=== PATIENT | female | born 1945 | race Caucasian/White ===

== ENCOUNTER 2023-05-19 17:03 | Emergency (ER) | payer OTHER, SELFPAY ==
[2023-05-19 17:21] VITALS: BP 168/64
--- NOTE | 2023-05-19 20:39 | ED.GENMED ---
History of Present Illness
<EL Henley - Last Filed: 05/19/23 23:52>
General
Chief Complaint: Extremity Pain (non-traumatic)
Source: patient
Exam Limitations: none
Time Seen by Provider: 05/19/23 20:12
Nursing documentation reviewed up to this point in time: agreed with
Travel History
Have you had any contact with someone who has COVID-19?: No
Do you have any symptoms of coronavirus? Fever > 100 degrees, chills, cough, shortness of breath, sore throat, loss of taste or smell, muscle aches, or headache?: No
History of Present Illness
History of Present Illness:
Patient is a 77-year-old female who had left hip replacement February 2023. Patient reports she was fine until this morning when she noticed discomfort with walking. She complains of fullness and notices a little swelling around the incisional
site to the left hip. She does feel that it is warmer. She denies any injury or trauma. She denies any fever or chills.
She has a follow-up appointment with DR Lim tomorrow.
Review of Systems
<EL Henley - Last Filed: 05/19/23 23:52>
Review of Systems
Allergies reviewed?: Yes
All Other Systems: ROS reviewed and negative except as documented in HPI and ROS
Constitutional: Reports no symptoms; Denies fever, fatigue or chills
Musculoskeletal: Reports other (left hip pain )
Skin: Reports no symptoms
Psychiatric: Reports no symptoms
Phy Exam
<EL Henley - Last Filed: 05/19/23 23:52>
General Physical Exam
General Presentation: no apparent distress
General age: appears stated age
General Skin: warm and dry
General Habitus: normal
General Mental: alert
General Hydration: appears well hydrated
Neurological Exam
Neurological Exam: alert and oriented x3
Musculoskeletal Exam
Musculoskeletal Exam: other (pt with + swelling mild erythema around incisional site approx 8 cm by 6 cm mildly tender to palpation , good ROM to left hip strong distal pulses )
Skin Exam
Skin Exam: normal color and warm/dry
Psychiatric Exam
Psychiatric Exam: normal mood/affect
Course
<EL Henley - Last Filed: 05/19/23 23:52>
Orders/Labs/Results
Orders:
Orders
05/19/23 20:35
IV Insert/Care/Rem.- Treatment PRN
05/19/23 20:36
Hip, Left 2-3 Views [CR Hip - LT w/wo Pel 2-3 Vw*] Urgent
Comment:
Reason For Exam: pain to left hip (replaced 03/13
Include a pelvis x-ray?: Yes
05/19/23 20:55
CRP [C-Reactive Protein] Urgent
Complete Blood Count/With Diff Urgent
Comprehensive Metabolic Panel Urgent
Sed Rate [Erythrocyte Sed Rate] Urgent
05/19/23 22:13
Non Vasc Lower Ext Left US [US Non Vasc LOWER Ext LT] Urgent
Comment:
Reason For Exam: swelling /pain over incision site
05/19/23 22:18
Ketorolac [Toradol] 15 mg IV NOW STA
Abnormal Lab Results
05/19/23
20:55
WBC 12.5 H 10^3/uL
(4.8-10.8)
RBC 3.57 L 10^6/uL
(4.20-5.40)
Hgb 11.2 L g/dL
(12.0-16.0)
Hct 32.8 L %
(37.0-47.0)
MCH 31.4 H pg
(27.0-31.0)
Absolute Neuts (auto) 8.8 H 10^3/uL
(1.4-6.5)
Absolute Monos (auto) 1.0 H 10^3/uL
(0.1-0.6)
Lymphocytes % 20.0 L %
(20.5-51.1)
Sodium 133 L mmol/L
(135-145)
Glucose 108 H mg/dl
(70-99)
C-Reactive Protein 19.30 H mg/L
(0.0-10.00)
05/19/23 20:55
05/19/23 20:55
Vital Signs
Initial and Last Documented VS:
Initial Vital Signs
Temp Pulse Resp Pulse Ox
98.4 F 95 20 95
05/19/23 17:16 05/19/23 17:16 05/19/23 17:16 05/19/23 17:16
Last Documented Vital Signs
Temp Pulse Resp BP Pulse Ox
98.4 F 82 16 143/73 99
05/19/23 17:16 05/19/23 21:07 05/19/23 21:07 05/19/23 20:56 05/19/23 22:00
Cabinet Maker consulted with Physician
Cabinet Maker consulted with physician?: Yes
Name of Physician Consulted: Onel
<Ludivina Sykes, DO - Last Filed: 05/19/23 23:51>
Orders/Labs/Results
Orders:
Orders
05/19/23 20:35
IV Insert/Care/Rem.- Treatment PRN
05/19/23 20:36
Hip, Left 2-3 Views [CR Hip - LT w/wo Pel 2-3 Vw*] Urgent
Comment:
Reason For Exam: pain to left hip (replaced 03/13
Include a pelvis x-ray?: Yes
05/19/23 20:55
CRP [C-Reactive Protein] Urgent
Complete Blood Count/With Diff Urgent
Comprehensive Metabolic Panel Urgent
Sed Rate [Erythrocyte Sed Rate] Urgent
05/19/23 22:13
Non Vasc Lower Ext Left US [US Non Vasc LOWER Ext LT] Urgent
Comment:
Reason For Exam: swelling /pain over incision site
05/19/23 22:18
Ketorolac [Toradol] 15 mg IV NOW STA
Abnormal Lab Results
05/19/23
20:55
WBC 12.5 H 10^3/uL
(4.8-10.8)
RBC 3.57 L 10^6/uL
(4.20-5.40)
Hgb 11.2 L g/dL
(12.0-16.0)
Hct 32.8 L %
(37.0-47.0)
MCH 31.4 H pg
(27.0-31.0)
Absolute Neuts (auto) 8.8 H 10^3/uL
(1.4-6.5)
Absolute Monos (auto) 1.0 H 10^3/uL
(0.1-0.6)
Lymphocytes % 20.0 L %
(20.5-51.1)
Sodium 133 L mmol/L
(135-145)
Glucose 108 H mg/dl
(70-99)
C-Reactive Protein 19.30 H mg/L
(0.0-10.00)
05/19/23 20:55
05/19/23 20:55
Vital Signs
Initial and Last Documented VS:
Initial Vital Signs
Temp Pulse Resp Pulse Ox
98.4 F 95 20 95
05/19/23 17:16 05/19/23 17:16 05/19/23 17:16 05/19/23 17:16
Last Documented Vital Signs
Temp Pulse Resp BP Pulse Ox
98.4 F 82 16 143/73 99
05/19/23 17:16 05/19/23 21:07 05/19/23 21:07 05/19/23 20:56 05/19/23 22:00
<EL Henley - Last Filed: 05/19/23 23:52>
MDM/Problems Addressed
Differential Diagnosis Includes:
not limited to: cellulitis abscess, joint infection
MDM/Problems Addressed:
As documented patient is a 77-year-old female status post left hip replacement February 2023 started with pain this morning. On exam she has very mild faint erythema, mild swelling to incisional site as documented on physical exam. She does have
good range of motion of the hip and is able to bear weight with mild discomfort. Patient denies any fevers and is afebrile here white count only minimally elevated at 12.5 with a normal sed rate of 16 and minimally elevated CRP of 19.3. X-ray
unremarkable. Ultrasound shows surgical scar/surgical tract with contiguous underlying deep soft tissue hyperechoic fluid collection likely developing postoperative hematoma and or seroma possible abscess but not likely. Case reviewed with
orthopedics Dr. Celestine Alaniz. Patient is well-appearing she has an appointment with Dr. Lim tomorrow for follow-up patient examined by ED attending will DC with close outpatient follow-up orthopedics tomorrow patient may likely need aspiration as
discussed by ortho however will hold off on antibx as recommended by DR Sprague until aspiration is done.
I did however review with patient to return if any worsening of symptoms as far as increased pain, swelling redness fever or any further concerns.
<EL Henley - Last Filed: 05/19/23 23:52>
*Critical Care Note
Total Time (30-74mins, 75-104mins- exclusive of procedures): Not Applicable
ED Attending Note
<EL Henley - Last Filed: 05/19/23 23:52>
-
Portions of this chart may have been created with voice recognition software.� Occasional wrong word or��sound alike� substitutions may have occurred due to the inherent limitations of voice recognition software.
<Ludivina Sykes DO - Last Filed: 05/19/23 23:51>
ED Attending Note
Patient seen and examined by attending physician: Yes
I performed the substantive portion of visit, reviewed & personally made and approve the management plan that is documented in note by myself or CHRISTEN.: Yes
I performed a history and physical exam of patient and discussed management with resident, I reviewed resident's note and agree with documented findings and plan of care.: Yes
ED Attending Note:
77-year-old woman with history of left total hip replacement February 2023. She complains of left lateral hip redness, pain, swelling that began mildly last night, much worse today. She has not had a fever nor chills. No recent injury nor fall.
No radiation of the pain.
No history of immunocompromise nor risk factors for such.
She has an appointment with Dr. Lim scheduled for tomorrow.
77-year-old woman appears her stated age, bright and alert, quite spry, appears in no acute distress. Afebrile. Ambulatory about exam room with steady unaided gait.
Left lateral hip has well-healed incision with approximate 8 cm x 6 cm sized area of very mild erythema, mild soft tissue swelling that is moderately warm to touch and mildly to moderately tender to palpation. There is no fluctuance, no
lymphangitis. Hip has full range of motion without difficulty nor pain. Patient has no pain with weightbearing.
Concern for local cellulitis, bursitis, concern for early hip infection.
Labs show mildly elevated white blood cell count of 12.5. Reassuring that sed rate is normal at 16. CRP is only minimally elevated at 19.3.
Left hip x-ray shows total hip arthroplasty hardware in place. Visualized joints and soft tissues are grossly unremarkable.
Case has been discussed with Dr. Sprague. He recommends holding off on antibiotics with plan for prompt follow-up with Dr. Lim tomorrow.
Will check ultrasound of left lateral hip assess for fluid collection/abscess.
Will give an IV dose of Toradol.
05/19/2023 2349 PM
Ultrasound shows superficial scar/cervical tract with a continuous underlying deep soft tissue hypoechoic fluid collection measuring 2.8 x 2.5 x 2 cm concerning for postop hematoma and/or seroma. A developing abscess appears less likely although
not definitively excluded.
A surgical procedure was February, appears somewhat late for a seroma or hematoma but not unheard of.
Will defer to orthopedics tomorrow morning for further evaluation.
If fever develops or worsening pain, erythema prompt return to the ED.
Discharge Plan
Departure
Patient Disposition: Home (Routine Discharge)
Date of Disposition: 05/19/23
Time of Disposition: 23:44
Patient with high blood pressure during this ER visit?: Yes
Condition: Fair
Discharge Problem:
Acute hip pain
Instructions: Hip Pain (DC), BLOOD PRESSURE
Prescriptions:
No Action
Azelastine [place]
1 spray intranasal QPM
simvastatin 10 MG tablet
10 mg PO QPM
montelukast 10 MG tablet
10 mg PO QPM
fluticasone propionate 1 SPRAY spray,suspension
1 spray intranasal DAILY
Latanoprost
1 drp BOTH EYES QPM
Magnesium
1 tab PO QPM
Pro-Air Inhaler
1 - 2 puff inhalation PRN PRN (Reason: asthma symptoms)
Qvar Inhaler
1 puff inhalation QPM
Detrol
1 tab PO DAILY
celecoxib 200 MG capsule
200 mg PO DAILY 0RF
sennosides [senna] 1 TABLET tablet
1 tab PO HS 0RF
acetaminophen 325 MG tablet
650 mg PO Q4HPRN PRN (Reason: mild pain) 0RF
aspirin 325 MG tablet
325 mg PO DAILY 0RF
ondansetron HCl 4 MG tablet
4 mg PO Q8HPRN PRN (Reason: nausea) 0RF
docusate sodium 100 MG capsule
100 mg PO BID 0RF
mupirocin 1 APPLIC ointment
1 applic intranasal BID 0RF
oxycodone 5 MG tablet
5 mg PO Q4HPRN PRN (Reason: pain) 0RF
meperidine (PF) [Demerol (PF)] 25 MG/ML syringe
12.5 mg IV [id number] MRX1 PRN (Reason: shivers) 0RF
Referrals:
NONE,* [Active] -
Ernesto Lim MD [Active] -
Activity Restrictions/Additional Instructions:
Follow-up with orthopedics, Dr. Lim as scheduled tomorrow. Return if any worsening of symptoms if fevers increased pain increased redness or any further concerns.
Interventions
Interventions:
*Risk Screen - Suicide Last Done: 05/19/23 17:16
*General Assessment Last Done: 05/19/23 17:16
*Neglect/Abuse Screening Last Done: 05/19/23 17:16
ED-Skin Assessment Last Done: 05/19/23 21:06
ED-Peripheral Vascular Assessment Last Done: 05/19/23 21:07
ED-Musculoskeletal Assessment Last Done: 05/19/23 21:06
[2023-05-19 20:56] VITALS: BP 143/73
[2023-05-19 21:02] LABS: % Basophils 0.6 % (0-2); % Eosinophils 0.6 % (0-6); % Immature Granulocytes 0.3 % (0-0.5); % Neutrophils 70.5 % (42.2-75.2); Absolute Basophils 0.1 10^3/uL (0-0.2); Absolute Eosinophils 0.1 10^3/uL (0-0.7); Absolute Lymphocytes 2.5 10^3/uL (1.2-3.4); Absolute Neutrophils 8.8 10^3/uL (1.4-6.5); Hematocrit 32.8 % (37.0-47.0); Hemoglobin 11.2 g/dL (12.0-16.0); Mean Corp Hgb Conc. 34.1 g/dL (33.0-37.0); Mean Corpuscular Hgb 31.4 pg (27.0-31.0); Mean Corpuscular Volume 91.9 fL (81.0-99.0); Mean Platelet Volume 9.2 fL (7.4-10.4); Nucleated Red Blood Cells % 0 %; Platelet Count 260 10^3/uL (130-400); Red Blood Cell Count 3.57 10^6/uL (4.20-5.40); Red Cell Dist. Width 12.7 % (11.5-14.5); White Blood Cell Count 12.5 10^3/uL (4.8-10.8)
[2023-05-19 21:16] LABS: Erythrocyte Sed Rate 16 mm/hour (0-20)
[2023-05-19 21:17] LABS: ALT (SGPT) 25 U/L (0-35); AST (SGOT) 28 U/L (14-36); Albumin 4.5 g/dl (3.5-5.0); Alkaline Phosphatase 122 U/L (38-126); Blood Urea Nitrogen 17 mg/dl (7-17); Calcium 9.4 mg/dl (8.4-10.2); Carbon Dioxide 27 mmol/L (22-30); Chloride 101 mmol/L (98-107); Glucose 108 mg/dl (70-99); Potassium 3.8 mmol/L (3.5-5.1); Sodium 133 mmol/L (135-145); Total Bilirubin 0.6 mg/dl (0.2-1.3); Total Protein 7.4 g/dl (6.3-8.2); eGFR > 60.00
[2023-05-19] MEDS: TORADOL 15 MG IV (22:25)
== END 2023-05-20 00:03 | disposition home or self-care (01) ==
LOC: EMR 17:03
PROVIDERS: Nurse Practitioner; EMERGENCY PHYSICIAN Emergency Medicine; FAMILY PHYSICIAN Internal Medicine
DX: M25.552 Pain in left hip (principal); R03.0 Elevated blood-pressure reading, without diagnosis of hypertension; Z96.642 Presence of left artificial hip joint
CPT/HCPCS: 99285; 96374; 73502; 76882; 80053; 85025; 85652; 86140

== ENCOUNTER → 2023-07-20 16:37 | Outpatient (REF) | payer OTHER, SELFPAY | LOC: HWWDC 16:37 | PROVIDERS: ATTENDING PHYSICIAN Nurse Practitioner Family; FAMILY PHYSICIAN Internal Medicine | DX: Z12.31 Encounter for screening mammogram for malignant neoplasm of breast (principal) | CPT/HCPCS: 77063; 77067 ==

== ENCOUNTER → 2024-02-08 14:30 | Outpatient (REF) | payer OTHER, SELFPAY | LOC: HWRCS 14:30 | PROVIDERS: ATTENDING PHYSICIAN Nurse Practitioner Primary Care | DX: I10 Essential (primary) hypertension (principal); R60.0 Localized edema | CPT/HCPCS: 93306 ==

== ENCOUNTER 2024-04-06 06:27 | Day surgery (SDC) | payer OTHER, SELFPAY | END 2024-04-06 11:05 | disposition home or self-care (01) | LOC: GI 06:27 | PROVIDERS: ATTENDING PHYSICIAN Internal Medicine Gastroenterology | DX: Z12.11 Encounter for screening for malignant neoplasm of colon (principal); K64.8 Other hemorrhoids; D12.3 Benign neoplasm of transverse colon; D12.7 Benign neoplasm of rectosigmoid junction; K62.1 Rectal polyp; Z86.0101 Personal history of adenomatous and serrated colon polyps | CPT/HCPCS: 45385; 45380; 88305 ==

== ENCOUNTER 2024-05-30 13:00 | Emergency (ER) | payer OTHER, SELFPAY ==
[2024-05-30 13:05] VITALS: BP 107/63
[2024-05-30 13:55] LABS: ALT (SGPT) 19 U/L (0-35); AST (SGOT) 26 U/L (14-36); Albumin 3.9 g/dl (3.5-5.0); Alkaline Phosphatase 76 U/L (38-126); Blood Urea Nitrogen 34 mg/dl (7-17); Calcium 10.3 mg/dl (8.4-10.2); Carbon Dioxide 27 mmol/L (22-30); Chloride 97 mmol/L (98-107); Glucose 105 mg/dl (70-99); Potassium 4.2 mmol/L (3.5-5.1); Sodium 134 mmol/L (135-145); Total Bilirubin 0.4 mg/dl (0.2-1.3); Total Protein 6.6 g/dl (6.3-8.2); eGFR 46.91
[2024-05-30 13:59] LABS: D-Dimer 0.82 ug/mlFEU (0.00-0.50)
[2024-05-30 14:01] LABS: Mean Corp Hgb Conc. 34.4 g/dL (33.0-37.0); Mean Corpuscular Hgb 31.7 pg (27.0-31.0); Mean Corpuscular Volume 92.2 fL (81.0-99.0); Mean Platelet Volume 9.4 fL (7.4-10.4); Platelet Count 180 10^3/uL (130-400); Red Blood Cell Count 3.47 10^6/uL (4.20-5.40); Red Cell Dist. Width 12.6 % (11.5-14.5); White Blood Cell Count 5.2 10^3/uL (4.8-10.8)
[2024-05-30 14:05] LABS: Troponin I < 0.012 ng/ml
[2024-05-30 14:40] VITALS: BP 106/65
[2024-05-30 14:43] VITALS: BMI 28.5
[2024-05-30 15:00] VITALS: BP 97/59
[2024-05-30 15:10] LABS: % Basophils 0.4 % (0-2); % Eosinophils 1.2 % (0-6); % Immature Granulocytes 0.6 % (0-0.5); % Lymphocytes 37.7 % (20.5-51.1); % Monocytes 8.7 % (1.7-9.3); % Neutrophils 51.4 % (42.2-75.2); Absolute Eosinophils 0.1 10^3/uL (0-0.7); Absolute Monocytes 0.5 10^3/uL (0.1-0.6); Absolute Neutrophils 2.7 10^3/uL (1.4-6.5); Nucleated Red Blood Cells % 0 %
[2024-05-30 15:30] LABS: COVID-19 Antigen Negative (Negative)
[2024-05-30] MEDS: NSS 1000 IV (15:48)
--- NOTE | 2024-05-30 16:52 | ED.GENMED ---
History of Present Illness
General
Chief Complaint: Breathing Problem
Source: patient
Exam Limitations: none
Time Seen by Provider: 05/30/24 14:32
Nursing documentation reviewed up to this point in time: agreed with
History of Present Illness
History of Present Illness:
78 yo female w h/o HLD, presents from [employer] office across the street where she had a previously scheduled appointment, they sent her here for low blood pressure in 90's/ and because she's been SOB.
States she started having shortness of breath and cough 3 days ago. Denies fever, n/v. Denies CP. The shortness of breath has been constant, at rest and with activity.
Past History
Past History
ED Past Medical History: Hypercholesterolemia
ED Past Surgical History: Orthopedic
Social History
Tobacco: Former smoker
Alcohol: None
Personal: Single
Living: alone
Review of Systems
Review of Systems
Allergies reviewed?: Yes
All Other Systems: ROS reviewed and negative except as documented in HPI and ROS
Constitutional: Denies fever or fatigue
EENT: Reports no symptoms
Respiratory: Reports cough and trouble breathing (feels SOB )
Cardiac: Denies chest pain
ABD/GI: Denies abdominal pain or nausea
: Denies dysuria, frequency or difficulty voiding
Musculoskeletal: Reports other (chroic bilateral calf pain)
Skin: Reports other (3 days ago she had a rupture of a small superficial blood vessel lateral right lower leg with blood 'shot across the room' bleeding stopped with pressure.)
Neurological: Reports no symptoms
Phy Exam
Physical Exam
Physical Exam:
GENERAL: No acute distress. A&Ox3.
CONSTITUTIONAL: Afebrile.
EYES: clear, conjunctivae normal
ENMT: moist mucus membranes, Pharynx nl
RESPIRATORY: Regular respirations, nonlabored, lungs clear. Dry cough noted
CARDIOVASCULAR: Regular rate and rhythm, no murmurs, no rubs.
GI: Soft, nontender, normal BS
MUSCULOSKELETAL: Moves with ease. Both calves tender. No redness, swelling, warmth. Well perfused.
SKIN: Warm, dry, pink
PSYCH: Normal mood and affect. Well kept, interactive and appropriate
NEUROLOGIC: Awake, alert and oriented. No focal neurological deficits
Scores
Heart Failure Risk
Heart Failure Risk Score: Not Applicable
Course
Orders/Labs/Results
Orders:
Orders
05/30/24 13:08
Electrocardiogram (*1) Urgent
Reason for Study: Shortness of Breath
EKG- Treatment ONCE
05/30/24 13:20
Complete Blood Count/With Diff Urgent
Comprehensive Metabolic Panel Urgent
D-Dimer Urgent
Troponin I Urgent
05/30/24 15:09
COVID-19 Antigen Urgent
Source: Nasal Swab
05/30/24 15:43
CR Chest - 2 Views Urgent
Comment:
Reason For Exam: cough, SOB
US Periph Venous LOWER Ext [place] Urgent
Comment:
Reason For Exam: SOB, calf pain bilaterally
05/30/24 15:47
0.9% Sodium Chloride 1000 ml [Nss] 1,000 ml IV BOLUS
Abnormal Lab Results
05/30/24
13:20
RBC 3.47 L 10^6/uL
(4.20-5.40)
Hgb 11.0 L g/dL
(12.0-16.0)
Hct 32.0 L %
(37.0-47.0)
MCH 31.7 H pg
(27.0-31.0)
Immature Gran % 0.6 H %
(0-0.5)
D-Dimer 0.82 H ug/mlFEU
(0.00-0.50)
Sodium 134 L mmol/L
(135-145)
Chloride 97 L mmol/L
(98-107)
BUN 34 H mg/dl
(7-17)
Creatinine 1.2 H mg/dL
(0.6-1.0)
Glucose 105 H mg/dl
(70-99)
Calcium 10.3 H mg/dl
(8.4-10.2)
05/30/24 13:20
05/30/24 13:20
Vital Signs
Initial and Last Documented VS:
Initial Vital Signs
Temp Pulse Resp BP Pulse Ox
97.6 F 97 16 107/63 95
05/30/24 13:05 05/30/24 13:05 05/30/24 13:05 05/30/24 13:05 05/30/24 13:05
Last Documented Vital Signs
Temp Pulse Resp BP Pulse Ox
97.6 F 73 20 110/53 97
05/30/24 13:05 05/30/24 18:12 05/30/24 18:12 05/30/24 18:12 05/30/24 18:12
MDM/Problems Addressed
Differential Diagnosis Includes:
Viral URI, PNA, Covid
PE, DVT
Dehydration
MDM/Problems Addressed:
78 yo female w h/o HLD, presents from [employer] office across the street where she had a previously scheduled appointment, they sent her here for low blood pressure in 90's/ and because she's been SOB.
States she started having shortness of breath and cough 3 days ago. Denies fever, n/v. Denies CP. The shortness of breath has been constant, at rest and with activity.
Afebrile, NAD
EKG NSR
CBC unremarkable
CMP BUN/creat mildly elevated, consistent with dehydration which may explain her low BP. IVF's ordered.
Troponin WNL
Covid neg
D dimer ordered in triage is mildly elevated, slightly higher than age adjusted. Considered CT PE study.
On re exam pt has pain both calves she states they have been that way for '4 years' 'every time I touch my calves they hurt.' No redness, swelling, distal n/v intact.
Case discussed with Dr. Sequeira.
Will US both LE's if neg, simple CXR will suffice for cough and SOB.
6:00 p.m.
US bilat LE neg for DVT
After IVFs BP 110/53
Informed to f/u with PCP w/in next 2 weeks ro recheck labs
CXR Righ middle PNA
Rx for Doxycycline sent to her pharmacy
*EKG
EKG Intrepretation Date: 05/30/24
Interpretation: normal
Heart Rate: 84
Rate: normal
Rhythm: sinus
[place]: normal axis
Interval: normal interval
QRS Pattern: normal QRS
Ischemia: no ischemia
*Critical Care Note
Total Time (30-74mins, 75-104mins- exclusive of procedures): Not Applicable
ED Attending Note
-
Portions of this chart may have been created with voice recognition software.� Occasional wrong word or��sound alike� substitutions may have occurred due to the inherent limitations of voice recognition software.
Discharge Plan
Departure
Patient Disposition: Home (Routine Discharge)
Date of Disposition: 05/30/24
Time of Disposition: 18:35
Patient with high blood pressure during this ER visit?: No
Condition: Good
Covid-19: Negative COVID-19
Discharge Problem:
Mild dehydration, Pneumonia
Instructions: Pneumonia in adults, Dehydration in adults - ED discharge instructions
Prescriptions:
New
doxycycline hyclate 100 mg capsule
100 mg PO BID Qty: 20 0RF
No Action
Azelastine [place]
1 spray intranasal QPM
simvastatin 10 MG tablet
10 mg PO QPM
montelukast 10 MG tablet
10 mg PO QPM
fluticasone propionate 1 SPRAY spray,suspension
1 spray intranasal DAILY
Latanoprost
1 drp BOTH EYES QPM
Magnesium
1 tab PO QPM
Pro-Air Inhaler
1 - 2 puff inhalation PRN PRN (Reason: asthma symptoms)
Qvar Inhaler
1 puff inhalation QPM
Detrol
1 tab PO DAILY
celecoxib 200 MG capsule
200 mg PO DAILY 0RF
sennosides [senna] 1 TABLET tablet
1 tab PO HS 0RF
acetaminophen 325 MG tablet
650 mg PO Q4HPRN PRN (Reason: mild pain) 0RF
aspirin 325 MG tablet
325 mg PO DAILY 0RF
ondansetron HCl 4 MG tablet
4 mg PO Q8HPRN PRN (Reason: nausea) 0RF
docusate sodium 100 MG capsule
100 mg PO BID 0RF
mupirocin 1 APPLIC ointment
1 applic intranasal BID 0RF
oxycodone 5 MG tablet
5 mg PO Q4HPRN PRN (Reason: pain) 0RF
meperidine (PF) [Demerol (PF)] 25 MG/ML syringe
12.5 mg IV [id number] MRX1 PRN (Reason: shivers) 0RF
Referrals:
Francia Ibanez CRNP [Family Provider] - As needed
Activity Restrictions/Additional Instructions:
As we discussed, your chest x-ray shows you have pneumonia in the right lung.
You were dehydrated, drink at least 6 eight ounce glasses of water/fluid daily
See your doctor in 1-2 weeks to have your blood work rechecked as your kidney function were a little abnormal
I sent a prescription to your pharmacy for the antibiotic doxycycline pick it up and start it today
Interventions
Interventions:
*Risk Screen - Suicide Last Done: 05/30/24 13:07
*General Assessment Last Done: 05/30/24 14:47
*Neglect/Abuse Screening Last Done: 05/30/24 13:07
*ED- Fall Risk Assessment Last Done: 05/30/24 14:48
*ED COVID-19 Vaccine History Last Done: 05/30/24 14:48
*Nursing Disposition Last Done: 05/30/24 18:33
ED- Cardiac Assessment Last Done: 05/30/24 14:45
ED- Pulmonary Assessment Last Done: 05/30/24 14:44
Discharge Date and Time
Discharge Date/Time: 05/30/24 18:35
Print Language: EQUATORIAL GUINE[place]
[2024-05-30 18:09] VITALS: BP 110/53
[2024-05-30 18:12] VITALS: BP 110/53
== END 2024-05-30 18:35 | disposition home or self-care (01) ==
LOC: EMR 13:00
PROVIDERS: Emergency Medicine; Registered Nurse; EMERGENCY PHYSICIAN Emergency Medicine; FAMILY PHYSICIAN Nurse Practitioner Primary Care
DX: J18.9 Pneumonia, unspecified organism (principal); E86.0 Dehydration; E78.00 Pure hypercholesterolemia, unspecified; Z11.52 Encounter for screening for COVID-19
CPT/HCPCS: 99285; 96360; 71046; 80053; 84484; 85025; 85379; 87811; 93005; 93970

== ENCOUNTER → 2024-07-06 14:09 | Outpatient (REF) | payer OTHER, SELFPAY | LOC: HWRAD 14:09 | PROVIDERS: ATTENDING PHYSICIAN Nurse Practitioner Primary Care | DX: N32.81 Overactive bladder (principal); N39.0 Urinary tract infection, site not specified | CPT/HCPCS: 76770 ==

== ENCOUNTER → 2024-07-12 10:29 | Outpatient (REF) | payer OTHER, SELFPAY | LOC: RAD 10:29 | PROVIDERS: ATTENDING PHYSICIAN Nurse Practitioner Primary Care | DX: J18.9 Pneumonia, unspecified organism (principal); J45.21 Mild intermittent asthma with (acute) exacerbation | CPT/HCPCS: 71046 ==

== ENCOUNTER → 2024-07-26 15:50 | Outpatient (REF) | payer OTHER, SELFPAY | LOC: RAD 15:50 | PROVIDERS: ATTENDING PHYSICIAN Nurse Practitioner Primary Care | DX: R79.89 Other specified abnormal findings of blood chemistry (principal); R06.09 Other forms of dyspnea; Z87.01 Personal history of pneumonia (recurrent); R60.0 Localized edema | CPT/HCPCS: 71275; 93970; Q9967 ==

== ENCOUNTER → 2024-10-20 10:41 | Outpatient (REF) | payer OTHER, SELFPAY | LOC: RCS 10:41 | PROVIDERS: ATTENDING PHYSICIAN Nurse Practitioner Primary Care; FAMILY PHYSICIAN Internal Medicine Geriatric Medicine | DX: R06.09 Other forms of dyspnea (principal); I51.89 Other ill-defined heart diseases; I10 Essential (primary) hypertension | CPT/HCPCS: 78452; 93017; A9500; J2785 ==

== ENCOUNTER → 2024-11-22 09:13 | Outpatient (REF) | payer OTHER, SELFPAY | LOC: HWRAD 09:13 | PROVIDERS: ATTENDING PHYSICIAN Internal Medicine Critical Care Medicine; FAMILY PHYSICIAN Nurse Practitioner Primary Care | DX: R93.89 Abnormal findings on diagnostic imaging of other specified body structures (principal) | CPT/HCPCS: 71250 ==